=== PATIENT | male | born 1975 | race Caucasian/White ===

== ENCOUNTER 2017-08-11 17:51 | Emergency (ER) | payer OTHER ==
[2017-08-11 19:53] VITALS: BP 106/72
--- NOTE | 2017-08-11 20:20 | ED ---
Throat Pain/Nasal Congestion - HPI Summary HPI Summary: 42 yr old male with the complaint of left eye irritation and drainage. Onset today. he does wear contact lenses. He has discomfort. He took contact lenses out this afternoon. He did not sleep with them in. He denies change in vision. - History of Current Complaint Chief Complaint: UCEye Time Seen by Provider: 08/11/17 19:55 - Allergies/Home Medications Allergies/Adverse Reactions: Allergies Allergy/AdvReac Type Severity Reaction Status Date / Time No Known Allergies Allergy Verified 08/11/17 21:40 Home Medications: Home Medications Loratadine/Pseudoephedrine [Claritin-D 24 Hour Tablet] 10 mg PO DAILY 08/11/17 [ History Confirmed 08/11/17] PMH/Surg Hx/FS Hx/Imm Hx Infectious Disease History: No Infectious Disease History: Denies: Traveled Outside the [place] in Last 30 Days - Social History Alcohol Use: Daily Substance Use Type: Reports: None Smoking Status (MU): Never Smoked Tobacco Review of Systems Positive: Drainage, Erythema, Other - discomfort All Other Systems Reviewed And Are Negative: Yes Physical Exam Triage Information Reviewed: Yes Vital Signs On Initial Exam: Initial Vitals Temp Pulse Resp BP Pulse Ox 98.5 F 68 15 106/72 100 08/11/17 19:49 08/11/17 19:49 08/11/17 19:49 08/11/17 19:49 08/11/17 19:49 Vital Signs Reviewed: Yes Appearance: Positive: Well-Appearing, No Pain Distress Skin: Positive: Warm, Skin Color Reflects Adequate Perfusion Head/Face: Positive: Normal Head/Face Inspection Eyes: Positive: EOMI, Conjunctiva Inflammed, Discharge ENT: Positive: Normal ENT inspection Neck: Positive: Nontender Respiratory/Lung Sounds: Positive: Clear to Auscultation, Breath Sounds Present Cardiovascular: Positive: RRR Musculoskeletal: Positive: Strength/ROM Intact Neurological: Positive: Sensory/Motor Intact, Alert, Oriented to Person Place, Time, CN Intact II-III Psychiatric: Positive: Normal - Manisha Coma Scale Best Eye Response: 4 - Spontaneous Best Motor Response: 6 - Obeys Commands Best Verbal Response: 5 - Oriented Coma Scale Total: 15 Diagnostics - Vital Signs Vital Signs Temp Pulse Resp BP Pulse Ox 08/11/17 19:49 98.5 F 68 15 106/72 100 - Laboratory Lab Statement: Any lab studies that have been ordered have been reviewed, and results considered in the medical decision making process. EENT Course/Dx - Course Course Of Treatment: 42 yr old with left eye irritation, pain and conjunctivitis. He wears contact lenses. He should have slit lamp exam to be sure no small corneal ulcer. Have called [facility] and they do have a working slit lamp per charge nurse and i was told to send patient down by providers. Patient requests to drive to [place] to be seen. - Diagnoses Provider Diagnoses: Pain, eye, left, Conjunctivitis Discharge - Sign-Out/Discharge Documenting (check all that apply): Discharge/Admit/Transfer - Discharge Plan Condition: Good Disposition: TRANS HIGHER LVL OF CARE FAC Patient Education Materials: Eye Pain (ED), Conjunctivitis (ED) Referrals: Norbert Tom MD [Primary Care Provider] - Additional Instructions: Go to [facility] they will be expecting you after you leave here. - Billing Disposition and Condition Condition: GOOD Disposition: Trans Higher Lvl of Care Fac
== END 2017-08-11 20:37 | disposition short-term general hospital (02) ==
LOC: UCCORT 17:51
DX: H57.12 Ocular pain, left eye (principal); H10.9 Unspecified conjunctivitis
CPT/HCPCS: 99202; G0463

== ENCOUNTER 2017-08-11 21:34 | Emergency (ER) | payer OTHER ==
[2017-08-11] MEDS ORDERED: Fluorescein Sod TOPICAL 0.6* 0.6 MG TEST OPHTHALMIC ONE (22:47)
[2017-08-11] MEDS ORDERED: Proparacaine 0.5% OPHTH.SOL* 15 ML BTL LEFT EYE ONE (22:47)
--- NOTE | 2017-08-11 23:33 | ED ---
Throat Pain/Nasal Congestion - HPI Summary HPI Summary: Complains of left eye redness, discharge starting this afternoon, with symptoms of mild cough, mild sore throat, nasal discharge in the morning 2 days. Son had recent pink eye infection. Patient sent from urgent care for evaluation. Denies trauma, ARANA, fever, ear pain, sore throat, cough, abdominal pain, vision change. Positive contacts lens. Medical history is seasonal allergies. - History of Current Complaint Chief Complaint: EDEyeProblem Time Seen by Provider: 08/11/17 21:52 Hx Obtained From: Patient Onset/Duration: Sudden Onset Severity: Mild Associated Signs And Symptoms: Positive: Negative - Allergies/Home Medications Allergies/Adverse Reactions: Allergies Allergy/AdvReac Type Severity Reaction Status Date / Time No Known Allergies Allergy Verified 08/11/17 21:40 PMH/Surg Hx/FS Hx/Imm Hx Infectious Disease History: No Infectious Disease History: Denies: Traveled Outside the [place] in Last 30 Days - Social History Alcohol Use: Occasionally Substance Use Type: Reports: None Smoking Status (MU): Never Smoked Tobacco Review of Systems Constitutional: Negative Positive: Other Positive: Sore Throat, Nasal Discharge Cardiovascular: Negative Respiratory: Negative Gastrointestinal: Negative Genitourinary: Negative Musculoskeletal: Negative Skin: Negative Neurological: Negative Psychological: Normal All Other Systems Reviewed And Are Negative: Yes Physical Exam - Summary Physical Exam Summary: [place] lamp exam reveals corneal abrasion in the center of the pupil of left eye. Positive conjunctival injection left eye. EOMs intact. PERRLA. Triage Information Reviewed: Yes Vital Signs On Initial Exam: Initial Vitals Temp Pulse Resp BP Pulse Ox 97.7 F 64 18 119/72 98 08/11/17 21:38 08/11/17 21:38 08/11/17 21:38 08/11/17 21:38 08/11/17 21:38 Vital Signs Reviewed: Yes Appearance: Positive: Well-Appearing Skin: Positive: Warm Head/Face: Positive: Normal Head/Face Inspection Eyes: Positive: EOMI, OTONIEL, Conjunctiva Inflammed ENT: Positive: Normal ENT inspection Neck: Positive: Supple Respiratory/Lung Sounds: Positive: Clear to Auscultation Cardiovascular: Positive: Normal Abdomen Description: Positive: Nontender Musculoskeletal: Positive: Normal Neurological: Positive: Normal Psychiatric: Positive: Normal AVPU Assessment: Alert - [place] Coma Scale Best Eye Response: 4 - Spontaneous Best Motor Response: 6 - Obeys Commands Best Verbal Response: 5 - Oriented Coma Scale Total: 15 Diagnostics - Vital Signs Vital Signs Temp Pulse Resp BP Pulse Ox 08/11/17 21:38 97.7 F 64 18 119/72 98 - Laboratory Lab Statement: Any lab studies that have been ordered have been reviewed, and results considered in the medical decision making process. EENT Course/Dx - Course Course Of Treatment: Complains of left eye redness, discharge starting this afternoon, with symptoms of mild cough, mild sore throat, nasal discharge in the morning 2 days. Son had recent pink eye infection. Patient sent from urgent care for evaluation. Denies trauma, ARANA, fever, ear pain, sore throat, cough, abdominal pain, vision change. Positive contacts lens. Medical history is seasonal allergies. Garland lamp exam reveals corneal abrasion in the center of the pupil of left eye. Positive conjunctival injection left eye. EOMs intact. PERRLA. Gentamicin 2 drops per for 4 hours, follow-up with ophthalmology - Diagnoses Provider Diagnoses: Corneal abrasion, left Discharge - Sign-Out/Discharge Documenting (check all that apply): Discharge/Admit/Transfer - Discharge Plan Condition: Stable Disposition: HOME Patient Education Materials: Corneal Abrasion (ED) Referrals: Norbert Tom MD [Primary Care Provider] - Additional Instructions: 2 drops of antibiotic solution in her left eye every 4 hours. Follow-up with ophthalmology. Return to the ED for any new or worsening symptoms - Billing Disposition and Condition Condition: STABLE Disposition: Home
[2017-08-11] MEDS ORDERED: Gentamicin 0.3% OPHTH.SOLN* 5 ML BTL LEFT EYE SCH (23:45)
[2017-08-12] MEDS ORDERED: Tobramycin 0.3% OPHTH.SOL* 5 ML BOT (regular eye drops) LEFT EYE ONE (00:24)
[2017-08-12 01:19] VITALS: BP 118/80
== END 2017-08-12 00:50 | disposition home or self-care (01) ==
LOC: ED 21:34
DX: S05.02XA Injury of conjunctiva and corneal abrasion without foreign body, left eye, initial encounter (principal); X58.XXXA Exposure to other specified factors, initial encounter; Y92.9 Unspecified place or not applicable; J02.9 Acute pharyngitis, unspecified
CPT/HCPCS: 99282; A9270-GY